=== PATIENT | male | born 1990 | race Hispanic/Latino ===

== ENCOUNTER 2024-06-09 03:00 | Observation (INO) | payer SELFPAY ==
--- OUTSIDE RECORDS SUMMARY | 2024-06-09 03:03 | XMS REPORT | Continuity of Care Document ---
Author Name Unknown Address [address] [facility] [address] [place] [address] Organization [facility] MD Address [address] [facility] [address] [place] [address] Care Team Providers Care Senior Education Specialist Name Role Phone Pcp, Patient Does Not Have A Primary Care Physic khadra Sandeep LEDEZMA Attending Clinician Unavailable Sandeep Wyatt Attending Clinician [phone] Ivory Marshall Attending Clinician [phone] IVORY VELARDE Attending Clinician Unavailable Payers Payer Name Policy Type Policy Number Effective Date Expirati on Date Source [facility] [id number] 2021 00:00:00 Problems Condition Name Condition Details Condition Category Status Onset Date Resolution Date Last Treatment Date Treating Clinician Comments Source No known active problems No known active problems Disease [facility] Allergies, Adverse Reactions, Alerts Allergy Name Allergy Type Status Severity Reaction(s) Onset Date Inactive Date Treating Clinician Comments Source NO KNOWN ALLERGIE S Drug Class Active [facility] Social History Social Habit Start Date Stop Date Quantity Comments Source Exposure to SARS-CoV-2 (event) 2021-08-18 00:00:00 2021-08-28 13:17:[address] [facility] Sex Ass[birth year] At 1990 00:00:00 1990 00:00:00 [facility] Smoking Status Start Date Stop Date Source Unknown if ever smoked [facility] Medications Ordered Medication Name Filled Medication Name Start Date Stop Date Current Medication? Ordering Clinician Indication Dosage Frequency Signature (SIG) Comments Components Source ibuprofen 600 mg tablet 08-28 00:00: 00 Yes [id number] 600mg Take 1 tablet by mouth every 6 (six) hours as needed for Pain (scale 4-6). [facility] benzonatate 200 mg capsule 08-28 00:00: 00 Yes [id number] 200mg Take 1 capsule by mouth 3 (three) times daily as needed for Cough for up to 20 doses. [facility] ibuprofen (IBU) tablet 800 mg 06-12 21:15: 00 06-12 20:17 :00 No 800mg 800 mg, Oral, ONCE, 1 dose, On Sarah 06/12/21 at 1615, SANDEEP [facility] oseltamivir (TAMIFLU) 75 mg capsule 06-12 00:00: 00 06-18 04:59 :00 No [id number] 75mg Take 1 capsule by mouth 2 (two) times daily for 5 days. [facility] Vital Signs Vital Name Observation Time Observation Value Comments S ourerin Systolic blood pressure 2021-08-28 16:56:00 182 mm[Hg] [facility] Diastolic blood pressure 2021-08-28 16:56:00 96 mm[Hg] [facility] Heart rate 2021-08-28 16:56:00 75 /min [facility] Body temperature 2021-08-28 16:56:[address] [facility] Respiratory rate 2021-08-28 16:56:00 22 /min [facility] Body weight 2021-08-28 16:56:00 131.543 kg [facility] Oxygen saturation in Arterial blood by Pulse oximetry 2021-08-28 16:56:00 98 /min [facility] Systolic blood pressure 2021-06-12 21:27:00 171 mm[Hg] [facility] Diastolic blood pressure 2021-06-12 21:27:00 93 mm[Hg] [facility] Heart rate 2021-06-12 21:27:00 58 /min [facility] Body temperature 2021-06-12 21:27:[address] [facility] Respiratory rate 2021-06-12 21:27:00 20 /min [facility] Oxygen saturation in Arterial blood by Pulse oximetry 2021-06-12 21:27:00 95 /min [facility] Body weight 2021-06-12 18:55:00 124.739 kg [facility] Procedures Procedure Date / Time Performed Performing Clinicia n Source RAPID STREP SCREEN FOR GROUP A 2021-08-28 18:16:[address] [facility] COVID-19 (ID NOW RAPID TESTING) 2021-08-28 18:16:[address] [facility] CONSENT/REFUSAL FOR DIAGNOSIS AND TREATMENT 2021-08-28 16:33:08 Doctor Unassigned, [place] [facility] RAPID STREP SCREEN FOR GROUP A 2021-06-12 20:15:[address] [facility] RAPID INFLUENZA A/B 2021-06-12 20:15:[address] [facility] COVID-19 (ID NOW RAPID TESTING) 2021-06-12 20:15:[address] [facility] NOTICE OF PRIVACY PRACTICES 2021-06-12 18:25:30 Doctor Unassigned, [place] [facility] CONSENT/REFUSAL FOR DIAGNOSIS AND TREATMENT 2021-06-12 18:25:13 Doctor Unassigned, [place] [facility] Encounters Start Date/Time End Date/Time Encounter Type Admission Type Attending Clinicians Care Facility Care Department Encounter ID Source 2022-08-21 08:23:53 2022-08-21 08:23:53 Outpatient S[facility] SFA [id number] Pola Marrero 2021-08-28 11:57:00 2021-08-28 14:55:00 Emergency X Sandeep LEDEZMA [facility] ERT [id number] [facility] 2021-08-28 11:57:00 2021-08-28 14:55:00 Emergency Sandeep Ledezma [facility] [id number] [facility] 2021-06-12 13:56:00 2021-06-12 16:31:00 Emergency Ivory Velarde [facility] [id number] [facility] 2021-06-12 13:56:00 2021-06-12 16:31:00 Emergency X IVORY VELARDE [facility] ERT [id number] [facility]
[2024-06-09] MEDS ORDERED: NA CHLORIDE 0.9% 500 ML ONE (03:25)
[2024-06-09] MEDS ORDERED: FAMOTIDINE 20 MG/2 ML VIAL IV ONE (03:25)
[2024-06-09] MEDS ORDERED: AMLODIPINE 10 MG TAB ONE (03:25)
[2024-06-09] MEDS ORDERED: ASPIRIN 81 MG CHEWABLE TABLET ONE (03:26)
[2024-06-09 04:04] LABS: Absolute Basophils 0.1 K/uL (0-0.5); Absolute Eosinophils 0.1 K/uL (0-0.5); Absolute Lymphocytes (CBC) 2.3 K/uL (0.7-4.9); Absolute Monocytes 0.9 K/uL (0.1-1.3); Absolute Neutrophil 5.3 K/uL (1.8-8.0); Basophils % 0.6 % (0-1.3); Eosinophils % 1.4 % (0-4.4); Hematocrit 40.3 % (39.6-49.0); Hemoglobin 13.9 g/dL (13.6-17.9); Lymphocytes % 26.8 % (15.3-44.8); MCHC 34.5 g/dL (32.0-36.0); MPV 8.2 fL (7.6-11.3); Monocytes % 10.2 % (3.3-12.3); Platelets 262 thou/uL (152-406); RBC Red Blood Cell Count 4.79 M/uL (4.33-5.43); Red Cell Distribution Width 14.2 % (12.1-15.2)
[2024-06-09 04:14] LABS: Barbiturates NEGATIVE (NEGATIVE); Benzodiazepines NEGATIVE (NEGATIVE); Cocaine NEGATIVE (NEGATIVE); METHAMPHETAM NEGATIVE (NEGATIVE); Methadone NEGATIVE (NEGATIVE); Opiates NEGATIVE (NEGATIVE); Phencyclidine NEGATIVE (NEGATIVE); THC Cannibis POSITIVE (NEGATIVE)
[2024-06-09 04:20] LABS: PT Prothrombin Time 11.1 SECONDS (10-13.0); Protime INR 0.97
[2024-06-09 04:27] LABS: Specific Gravity 1.007 (1.005-1.030); Sqamous Epithelial None Seen /HPF (None Seen); Urine Bacteria None Seen /HPF (<20); Urine Bilirubin NEGATIVE (Negative); Urine Blood Negative (Negative); Urine Clarity Clear (Clear); Urine Color Colorless (Yellow); Urine Culture Reflex Order NOT NEEDED; Urine Glucose NEGATIVE (Negative); Urine Ketones NEGATIVE (Negative); Urine Microscopic Reflex YN ORDER UMIC; Urine Nitrite NEGATIVE (Negative); Urine Protein NEGATIVE (Negative); Urine RBC None Seen /HPF (None Seen); Urine Urobilinogen Normal (Normal); Urine WBC None Seen /HPF (<5); Urine pH 6.5 (5.0-7.0)
[2024-06-09 04:28] LABS: ALT/SGPT 32 U/L (16-61); AST/SGOT 20 U/L (15-37); Albumin 3.6 g/dL (3.4-5.0); Alkaline Phosphatase 101 U/L (45-117); Anion Gap 8.9 mEq/L (5.0-15.0); BUN Blood Urea Nitrogen 9 mg/dL (7-18); Bicarbonate 28 mEq/L (21-32); Bilirubin Total 0.4 mg/dL (0.2-1.0); Globulin 3.6 g/dL (2.3-3.5); Glomerular Filtration Rate 111 ml/min (=/>90); Glucose Level 95 mg/dL (74-106); Lipase 43 U/L (13-75); Magnesium 2.4 mg/dL (1.6-2.4); NT PRO-BNP 183 pg/mL (<125); Potassium 2.9 mEq/L (3.5-5.1); Protein, Total 7.2 g/dL (6.4-8.2); Sodium Level 140 mEq/L (136-145); Troponin High Sensitivity 16.1 pg/mL (<58.9)
[2024-06-09 04:31] LABS: Bilirubin Direct < 0.2 mg/dL (0-0.2); Bilirubin Indirect, Calculated 0.2 mg/dL (0.2-0.8)
[2024-06-09] MEDS ORDERED: MORPHINE 4 MG/ML SYR ONE (04:34)
[2024-06-09] MEDS ORDERED: ONDANSETRON 4 MG/2 ML VIAL ONE (04:34)
--- NOTE | 2024-06-09 04:36 | ER ---
Nurse's Notes [facility] Name: Kenny Esquivel Age: 33 yrs Sex: Male : 1990 Arrival Date: 06/09/2024 Time: 03:00 Bed 5 Private MD: Diagnosis: Chest pain, unspecified;Dyspnea;Essential (primary) hypertension;Tobacco abuse counseling;Tobacco use;Hypokalemia Presentation: 06/09 03:21 Chief complaint: Patient states: chest tightness and SOB for the last 3-4 days, worse vc1 tonight. Coronavirus screen: Vaccine status: Patient reports being unvaccinated. At this time, the client does not indicate any symptoms associated with coronavirus-19. Ebola Screen: Patient negative for fever greater than or equal to 101.5 degrees Fahrenheit, and additional compatible Ebola Virus Disease symptoms Patient denies exposure to infectious person. Patient denies travel to an Ebola-affected area in the 21 days before illness onset. No symptoms or risks identified at this time. Initial Sepsis Screen: Does the patient meet any 2 criteria? No. Patient's initial sepsis screen is negative. Does the patient have a suspected source of infection? No. Patient's initial sepsis screen is negative. Risk Assessment: Do you want to hurt yourself or someone else? Patient reports no desire to harm self or others. Onset of symptoms was June 05, 2024. Care prior to arrival: None. Activity prior to arrival: None. 03:21 Method Of Arrival: Ambulatory vc1 03:21 Acuity: JERRY 3 vc1 Triage Assessment: 03:23 General: Behavior is anxious. General: Appears in no apparent distress. uncomfortable, vc1 obese, well groomed, well developed, well nourished, Behavior is cooperative. Pain: Complains of pain in chest Pain does not radiate. Pain currently is 8 out of 10 on a pain scale. Quality of pain is described as pressure, Pain began 2-3 days ago. Is continuous, Aggravated by increased activity, repositioning, Also complains of shortness of breath. EENT: No deficits noted. No signs and/or symptoms were reported regarding the EENT system. Neuro: Level of Consciousness is awake, alert, obeys commands, Oriented to person, place, time, situation, Appropriate for age. Cardiovascular: Reports chest pain, shortness of breath, Capillary refill < 3 seconds Patient's skin is warm and dry. Rhythm is regular. Respiratory: Airway is patent Trachea midline Respiratory effort is even, unlabored, Respiratory pattern is regular, symmetrical. GI: Abdomen is round Abd is soft and non tender. : No deficits noted. No signs and/or symptoms were reported regarding the genitourinary system. Derm: Skin is intact, is healthy with good turgor, Skin is dry, Skin is normal, Skin temperature is warm. Musculoskeletal: Circulation, motion, and sensation intact. Range of motion: intact in all extremities. Historical: - Allergies: 03:22 No Known Allergies; vc1 - Home Meds: 03:22 None [Active]; vc1 - PMHx: 03:22 Hypertensive disorder; vc1 - PSHx: 03:22 None; vc1 - Immunization history:: Client reports having NOT received the Covid vaccine. Flu vaccine is not up to date. - Infectious Disease History:: Denies. - Family history:: not pertinent. - Social history:: Smoking status: Reported history of juuling and/or vaping. Patient uses alcohol, on a daily basis. admits to "couple of beers" a day. Screenin:25 [facility] ED Fall Risk Assessment (Adult) History of falling in the last 3 months, vc1 including since admission No falls in past 3 months (0 pts) Confusion or Disorientation No (0 pts) Intoxicated or Sedated No (0 pts) Impaired Gait No (0 pts) Mobility Assist Device Used No (0 pt) Altered Elimination No (0 pt) Score/Fall Risk Level 0 - 2 = Low Risk Oriented to surroundings, Maintained a safe environment, Educated pt \\T\\ family on fall prevention, incl call for assistance when getting out of bed, Provided non-skid footwear, Hourly rounding (assess needs \\T\\ fall precautionary measures) done. Abuse screen: Denies threats or abuse. Nutritional screening: No deficits noted. Tuberculosis screening: No symptoms or risk factors identified. Assessment: 03:44 Reassessment: see triage assessment. bm8 04:19 Reassessment: Patient appears in no apparent distress at this time. Patient and/or bm8 family updated on plan of care and expected duration. Pain level reassessed. Patient is alert, oriented x 3, equal unlabored respirations, skin warm/dry/pink. Patient states symptoms have not improved. Pain: Complains of pain in chest Pain currently is 7 out of 10 on a pain scale. Quality of pain is described as pressure. Neuro: No deficits noted. Level of Consciousness is awake, alert, obeys commands, Oriented to person, place, time, situation, Appropriate for age. Respiratory: Airway is patent Respiratory effort is even, unlabored, Respiratory pattern is regular, symmetrical. 06:03 Reassessment: Patient appears in no apparent distress at this time. Patient and/or bm8 family updated on plan of care and expected duration. Pain level reassessed. Patient is alert, oriented x 3, equal unlabored respirations, skin warm/dry/pink. Patient denies pain at this time. Patient states feeling better. Patient states symptoms have improved. Pain: Denies pain. Vital Signs: 03:21 BP 191 / 103; Pulse 73; Resp 18; Temp 99.4; Pulse Ox 96% ; Weight 136.08 kg; Height 6 vc1 ft. 1 in. ; Pain 8/10; 03:44 BP 178 / 97; Pulse 72; Resp 18; Temp 99.4; Pulse Ox 96% ; Pain 6/10; bm8 04:19 BP 164 / 84; Pulse 74; Resp 18; Temp 99.2; Pulse Ox 97% ; Pain 7/10; bm8 06:03 BP 156 / 91; Pulse 70; Resp 18; Temp 99.2; Pulse Ox 98% ; Pain 0/10; bm8 03:21 Body Mass Index 39.58 (136.08 kg, 185.42 cm) vc1 03:21 Pain Scale: Adult vc1 03:44 Pain Scale: Adult bm8 04:19 Pain Scale: Adult bm8 06:03 Pain Scale: Adult bm8 Peg Coma Score: 03:44 Eye Response: spontaneous(4). Motor Response: obeys commands(6). Verbal Response: bm8 oriented(5). Total: 15. 04:19 Eye Response: spontaneous(4). Motor Response: obeys commands(6). Verbal Response: bm8 oriented(5). Total: 15. 06:03 Eye Response: spontaneous(4). Motor Response: obeys commands(6). Verbal Response: bm8 oriented(5). Total: 15. ED Course: 03:02 Patient arrived in ED. jj6 03:04 El Villegas MD is Attending Physician. jane 03:22 Triage completed. vc1 03:23 Curtis Piedra, RN is Primary Nurse. bm8 03:23 Arm band placed on right wrist. vc1 03:26 Patient has correct armband on for positive identification. Bed in low position. Call vc1 light in reach. Provided Education on: ekg, call light. color television console monitor on. Pulse ox on. NIBP on. 03:27 Patient maintains SpO2 saturation greater than 95% on room air. vc1 03:33 XRAY Chest (1 view) In Process Unspecified. EDMS 03:44 No provider procedures requiring assistance completed. Initial lab(s) drawn, by nitish story sent to lab. EKG done, by ED staff, reviewed by El Villegas MD. Inserted saline lock: 18 gauge in right antecubital area, using aseptic technique. Blood collected. Flushed with 10 mL NS. 04:34 Prince Tolentino MD is Hospitalizing Provider. jane 05:04 CT Chest For PE Angio In Process Unspecified. EDMS 06:03 Patient admitted, IV remains in place. bm8 Administered Medications: 03:40 Drug: NS 0.9% IV 500 ml 500 ml IV at 1 bolus once; to be given as a bolus over 30 bm8 minutes Volume: 500 ml; Route: IV; Rate: 1 bolus; Site: right antecubital; 06:06 Follow up: Response: No adverse reaction; IV Status: Completed infusion bm8 03:40 Drug: Norvasc PO 10 mg PO once Route: PO; bm8 04:38 Follow up: Response: No adverse reaction bm8 03:41 Drug: Aspirin PO Chewable Tablet 324 mg PO once; 81 mg tablets x 4 Route: PO; bm8 06:06 Follow up: Response: No adverse reaction bm8 03:41 Drug: Famotidine IVP 20 mg IVP once; dilute with 10 mL 0.9% NaCl; give over 2 minutes bm8 Route: IVP; Site: right antecubital; 06:06 Follow up: Response: No adverse reaction bm8 04:37 Drug: morphine IVP or IV 4 mg IVP once over 4 mins Route: IVP; Infused Over: 4 mins; bm8 Site: right antecubital; 06:06 Follow up: Response: No adverse reaction bm8 04:37 Drug: Ondansetron IVP 4 mg IVP once; over 2 minutes Route: IVP; Site: right antecubital;bm8 04:52 Follow up: Response: No adverse reaction bm8 04:52 Drug: Potassium PO Effervescent Tablet 50 mEq PO once; dissolve in 4 ounces of water or bm8 juice Route: PO; 05:26 Follow up: Response: No adverse reaction bm8 04:52 Drug: Metoprolol PO 50 mg PO once Route: PO; bm8 05:26 Follow up: Response: No adverse reaction bm8 05:26 Drug: Potassium PO Effervescent Tablet 50 mEq PO once; dissolve in 4 ounces of water or bm8 juice in 1 hour after first Route: PO; 06:06 Follow up: Response: No adverse reaction bm8 06:03 Drug: Enoxaparin Sub-Q 100 mg Sub-Q once Route: Sub-Q; Site: abdomen; bm8 06:06 Follow up: Response: No adverse reaction bm8 Medication: 03:26 VIS not applicable for this client. vc1 Outcome: 04:35 Decision to Hospitalize by Provider. jane 06:03 Admitted to ER Hold. Please see [facility] for further documentation. bm8 06:03 Condition: stable 06:03 Instructed on the need for admit, Demonstrated understanding of follow-up care, medications, 16:00 Patient left the ED. jb4 Signatures: Dispatcher [employer] El Mark MD MD cha Bryson, James RN RN jb4 Antonia Hayesj6 Luz Cabello RN RN vc1 Curtis Piedra RN RN bm8
--- NOTE | 2024-06-09 04:36 | EDPHYS ---
Physician Documentation [facility] Name: Kenny Esquivel Age: 33 yrs Sex: Male : 1990 Arrival Date: 06/09/2024 Time: 03:00 Bed 5 Private MD: ED Physician El Villegas HPI: 06/09 03:14 This 33 yrs old Male presents to ER via Unassigned with complaints of Chest jane Pressure, Chest Tightness, Shortness Of Breath. 03:14 The patient or guardian reports chest pain that is located primarily in the substernal jane area, anterior chest wall, bilaterally. The pain does not radiate. Associated signs and symptoms: Pertinent positives: shortness of breath. The chest pain is described as aching, sharp. Duration: The patient or guardian reports multiple episodes, with no pattern. Modifying factors: The symptoms are alleviated by nothing. the symptoms are aggravated by nothing. Severity of pain: At its worst the pain was moderate in the emergency department the pain is unchanged. The patient has not experienced similar symptoms in the past. Historical: - Allergies: 03:22 No Known Allergies; vc1 - Home Meds: 03:22 None [Active]; vc1 - PMHx: 03:22 Hypertensive disorder; vc1 - PSHx: 03:22 None; vc1 - Immunization history:: Client reports having NOT received the Covid vaccine. Flu vaccine is not up to date. - Infectious Disease History:: Denies. - Family history:: not pertinent. - Social history:: Smoking status: Reported history of juuling and/or vaping. Patient uses alcohol, on a daily basis. admits to "couple of beers" a day. ROS: 03:14 Constitutional: Negative for fever, chills, and weight loss, Eyes: Negative for injury, jane pain, redness, and discharge, ENT: Negative for injury, pain, and discharge, Neck: Negative for injury, pain, and swelling, Respiratory: Negative for shortness of breath, cough, wheezing, and pleuritic chest pain, Abdomen/GI: Negative for abdominal pain, nausea, vomiting, diarrhea, and constipation, Back: Negative for injury and pain, : Negative for injury, bleeding, discharge, and swelling, MS/Extremity: Negative for injury and deformity, Skin: Negative for injury, rash, and discoloration, Neuro: Negative for headache, weakness, numbness, tingling, and seizure, Psych: Negative for depression, anxiety, suicide ideation, homicidal ideation, and hallucinations, Allergy/Immunology: Negative for hives, rash, and allergies, Endocrine: Negative for neck swelling, polydipsia, polyuria, polyphagia, and marked weight changes, Hematologic/Lymphatic: Negative for swollen nodes, abnormal bleeding, and unusual bruising, 03:14 Cardiovascular: Positive for chest pain, of the chest, 03:14 MS/extremity: Negative for acute changes, Exam: 03:14 Constitutional: This is a well developed, well nourished patient who is awake, alert, jane and in no acute distress. Head/Face: Normocephalic, atraumatic. Eyes: Pupils equal round and reactive to light, extra-ocular motions intact. Lids and lashes normal. Conjunctiva and sclera are non-icteric and not injected. Cornea within normal limits. Periorbital areas with no swelling, redness, or edema. ENT: Nares patent. No nasal discharge, no septal abnormalities noted. Tympanic membranes are normal and external auditory canals are clear. Oropharynx with no redness, swelling, or masses, exudates, or evidence of obstruction, uvula midline. Mucous membranes moist. Neck: Trachea midline, no thyromegaly or masses palpated, and no cervical lymphadenopathy. Supple, full range of motion without nuchal rigidity, or vertebral point tenderness. No Meningismus. Chest/axilla: Normal chest wall appearance and motion. Nontender with no deformity. No lesions are appreciated. Cardiovascular: Regular rate and rhythm with a normal S1 and S2. No gallops, murmurs, or rubs. Normal PMI, no JVD. No pulse deficits. Respiratory: Lungs have equal breath sounds bilaterally, clear to auscultation and percussion. No rales, rhonchi or wheezes noted. No increased work of breathing, no retractions or nasal flaring. Abdomen/GI: Soft, non-tender, with normal bowel sounds. No distension or tympany. No guarding or rebound. No evidence of tenderness throughout. Back: No spinal tenderness. No costovertebral tenderness. Full range of motion. Skin: Warm, dry with normal turgor. Normal color with no rashes, no lesions, and no evidence of cellulitis. MS/ Extremity: Pulses equal, no cyanosis. Neurovascular intact. Full, normal range of motion., bilateral aka Neuro: Awake and alert, GCS 15, oriented to person, place, time, and situation. Cranial nerves II-XII grossly intact. Motor strength 5/5 in all extremities. Sensory grossly intact. Cerebellar exam normal. Normal gait. Psych: Awake, alert, with orientation to person, place and time. Behavior, mood, and affect are within normal limits. 03:14 ECG was reviewed by the Attending Physician. 03:14 Musculoskeletal/extremity: DVT Exam: No signs of deep vein thrombosis. no pain, no swelling, no tenderness, negative Homans' sign noted on exam, no appreciated bluish discoloration, no erythema, no increased warmth, 03:21 ECG was reviewed by the Attending Physician. [facility] Vital Signs: 03:21 BP 191 / 103; Pulse 73; Resp 18; Temp 99.4; Pulse Ox 96% ; Weight 136.08 kg; Height 6 vc1 ft. 1 in. ; Pain 8/10; 03:44 BP 178 / 97; Pulse 72; Resp 18; Temp 99.4; Pulse Ox 96% ; Pain 6/10; bm8 04:19 BP 164 / 84; Pulse 74; Resp 18; Temp 99.2; Pulse Ox 97% ; Pain 7/10; bm8 06:03 BP 156 / 91; Pulse 70; Resp 18; Temp 99.2; Pulse Ox 98% ; Pain 0/10; bm8 03:21 Body Mass Index 39.58 (136.08 kg, 185.42 cm) vc1 03:21 Pain Scale: Adult vc1 03:44 Pain Scale: Adult bm8 04:19 Pain Scale: Adult bm8 06:03 Pain Scale: Adult bm8 [place] Coma Score: 03:44 Eye Response: spontaneous(4). Motor Response: obeys commands(6). Verbal Response: bm8 oriented(5). Total: 15. 04:19 Eye Response: spontaneous(4). Motor Response: obeys commands(6). Verbal Response: bm8 oriented(5). Total: 15. 06:03 Eye Response: spontaneous(4). Motor Response: obeys commands(6). Verbal Response: bm8 oriented(5). Total: 15. MDM: 03:04 Medical Screening Exam initiated jane 03:18 Differential diagnosis: abnormal EKG, acute myocardial infarction, acute pericarditis, jane anxiety, coronary artery disease chest wall pain, Cholelithiasis costochondritis, esophagitis, gastritis, hiatal hernia, pancreatitis, peptic ulcer disease, pericarditis, pneumonia, pulmonary embolus, stable angina, thoracic aortic disection, unstable angina. HEART Score: History: Slightly Suspicious (0), ECG: Non specific repolarization disturbance / LBTB / PM (1), Age: < or = 45 years (0), Risk Factors: > or = 3 Risk factors for atherosclerotic disease (2), [Active Smoker] [+ Family HX] [Obesity] Troponin: < or = 1 x Normal Limit (0), Total Score = 3. MARTIN Risk Score: 1 - Three or more CAD risk factors, 1 - Recent [<24hrs] Severe Angina, TOTAL SCORE = 2. Data reviewed: vital signs, nurses notes, lab test result(s), EKG, radiologic studies. Consideration of Admission/Observation Escalation of care including admission/observation considered. I considered the following discharge prescriptions or medication management in the emergency department Medications were administered in the Emergency Department. See MAR. Independent interpretation of the following test(s) in the Emergency Department EKG: See my EKG interpretation above. Historians other than the Patient: Spouse/Significant Other: well informed. 06/09 03:05 Order name: XRAY Chest (1 view) 06/09 03:05 Order name: Basic Metabolic Panel; Complete Time: 04:32 [facility] 06/09 03:05 Order name: CBC with Diff; Complete Time: 04:18 jane 06/09 03:05 Order name: LFT's; Complete Time: 04:32 [facility] 06/09 03:05 Order name: Magnesium; Complete Time: 04:32 [facility] 06/09 03:05 Order name: NT PRO-BNP; Complete Time: 04:32 [facility] 06/09 03:05 Order name: PT-INR; Complete Time: 04:28 jane 06/09 03:05 Order name: Troponin HS; Complete Time: 04:32 [facility] 06/09 03:05 Order name: Lipase; Complete Time: 04:32 [facility] 06/09 03:05 Order name: Urinalysis w/ reflexes; Complete Time: 04:28 [facility] 06/09 03:05 Order name: UDS; Complete Time: 04:18 [facility] 06/09 04:32 Order name: COVID-19 Ag + Flu A+B Ag; Complete Time: 05:38 [facility] 06/09 05:18 Order name: Lipid Profile [facility] 06/09 05:18 Order name: Lipid Profile; Complete Time: 07:15 [facility] 06/09 05:18 Order name: Troponin High Sensitivity [facility] 06/09 05:18 Order name: Troponin High Sensitivity [facility] 06/09 05:18 Order name: Troponin High Sensitivity [facility] 06/09 05:18 Order name: Troponin High Sensitivity [facility] 06/09 05:18 Order name: Troponin High Sensitivity; Complete Time: 07:15 [facility] 06/09 05:19 Order name: Hemoglobin A1c; Complete Time: 07:15 [facility] 06/09 03:12 Order name: CT Chest For PE Angio; Complete Time: 07:15 [facility] 06/09 05:18 Order name: Echo with Doppler [facility] 06/09 04:32 Order name: EKG; Complete Time: 04:32 [facility] 06/09 03:05 Order name: Cardiac monitoring; Complete Time: 03:38 [facility] 06/09 03:05 Order name: EKG - Nurse/Tech; Complete Time: 03:38 [facility] 06/09 03:05 Order name: IV Saline Lock; Complete Time: 03:38 [facility] 06/09 03:05 Order name: Labs collected and sent; Complete Time: 03:38 [facility] 06/09 03:05 Order name: O2 Per Protocol; Complete Time: 03:38 [facility] 06/09 03:05 Order name: O2 Sat Monitoring; Complete Time: 03:38 [facility] 06/09 04:32 Order name: EKG - Nurse/Tech; Complete Time: 04:52 [facility] EC:21 Rate is 88 beats/min. Rhythm is regular. QRS [place] is Normal. ME interval is normal. QRS jane interval is normal. QT interval is normal. No Q waves. T waves are Normal. No ST changes noted. Clinical impression: NSR w/ Non-specific ST/T Changes and No evidence of ischemia. Interpreted by me. Reviewed by me. Administered Medications: 03:40 Drug: NS 0.9% IV 500 ml 500 ml IV at 1 bolus once; to be given as a bolus over 30 bm8 minutes Volume: 500 ml; Route: IV; Rate: 1 bolus; Site: right antecubital; 06:06 Follow up: Response: No adverse reaction; IV Status: Completed infusion bm8 03:40 Drug: Norvasc PO 10 mg PO once Route: PO; bm8 04:38 Follow up: Response: No adverse reaction bm8 03:41 Drug: Aspirin PO Chewable Tablet 324 mg PO once; 81 mg tablets x 4 Route: PO; bm8 06:06 Follow up: Response: No adverse reaction bm8 03:41 Drug: Famotidine IVP 20 mg IVP once; dilute with 10 mL 0.9% NaCl; give over 2 minutes bm8 Route: IVP; Site: right antecubital; 06:06 Follow up: Response: No adverse reaction bm8 04:37 Drug: morphine IVP or IV 4 mg IVP once over 4 mins Route: IVP; Infused Over: 4 mins; bm8 Site: right antecubital; 06:06 Follow up: Response: No adverse reaction bm8 04:37 Drug: Ondansetron IVP 4 mg IVP once; over 2 minutes Route: IVP; Site: right antecubital;bm8 04:52 Follow up: Response: No adverse reaction bm8 04:52 Drug: Potassium PO Effervescent Tablet 50 mEq PO once; dissolve in 4 ounces of water or bm8 juice Route: PO; 05:26 Follow up: Response: No adverse reaction bm8 04:52 Drug: Metoprolol PO 50 mg PO once Route: PO; bm8 05:26 Follow up: Response: No adverse reaction bm8 05:26 Drug: Potassium PO Effervescent Tablet 50 mEq PO once; dissolve in 4 ounces of water or bm8 juice in 1 hour after first Route: PO; 06:06 Follow up: Response: No adverse reaction bm8 06:03 Drug: Enoxaparin Sub-Q 100 mg Sub-Q once Route: Sub-Q; Site: abdomen; bm8 06:06 Follow up: Response: No adverse reaction bm8 Disposition Summary: 06/09/24 04:35 Hospitalization Ordered Notes: Hospitalization Status: Observation jane Provider: Prince jane Tolentino Condition: Fair jane Problem: new jane Symptoms: have improved jane Bed/Room Type: Standard jane Location: Telemetry/MedSurg (observation)(06/09/24 14:09) jb4 Room Assignment: 215(06/09/24 14:09) jb4 Diagnosis - Chest pain, unspecified jane - Dyspnea jane - Essential (primary) hypertension jane - Tobacco abuse counseling jane - Tobacco use jane - Hypokalemia jane Forms: - Medication Reconciliation Form jane - SBAR form jane - Leadership Thank You Letter jane Signatures: Dispatcher [employer] EDEl Doll MD MD cha Bryson, James, RN RN jb4 Luz Cabello RN RN vc1 Curtis Piedra, RN RN bm8 Corrections: (The following items were deleted from the chart) 03:06 03:06 BASIC METABOLIC PANEL+C.LAB.BRZ ordered. EDMS EDMS 03:06 03:06 CBC+H.LAB.BRZ ordered. EDMS EDMS 03:06 03:06 HEPATIC FUNCTION+C.LAB.BRZ ordered. EDMS EDMS 03:06 03:06 MAGNESIUM+C.LAB.BRZ ordered. EDMS EDMS 03:06 03:06 PROBNP+C.LAB.BRZ ordered. EDMS EDMS 03:06 03:06 PROTIME (+INR)+COAG.LAB.BRZ ordered. EDMS EDMS 03:06 03:06 Troponin High Sensitivity+C.LAB.BRZ ordered. EDMS EDMS 03:06 03:06 LIPASE+C.LAB.BRZ ordered. EDMS EDMS 03:06 03:06 Urinalysis+U.LAB.BRZ ordered. EDMS EDMS 03:06 03:06 URINE DRUG SCREEN+UC.LAB.BRZ ordered. EDMS EDMS 03:06 03:06 Chest Single View+RAD.RAD.BRZ ordered. EDMS EDMS 04:44 04:35 Telemetry/MedSurg (Inpatient) jane vc1 04:44 04:35 jane vc1 14:09 04:44 [facility] ER HOLD vc1 jb4 14:09 04:44 ERHOLD- vc1 jb4
[2024-06-09] MEDS ORDERED: POTASSIUM 25 MEQ EFFERV TAB ONE (04:44)
[2024-06-09] MEDS ORDERED: METOPROLOL XL 50 MG TAB PO ONE (04:44)
[2024-06-09] MEDS ORDERED: NITROGLYCERIN 0.4 MG/TAB SL PRN (05:14)
[2024-06-09 05:18] LABS: Influenza A Ag Negative; Influenza B Ag Negative; SARS-CoV-2 Antigen Rapid Res Negative (Negative)
--- NOTE | 2024-06-09 05:23 | P.HP ---
Certification for Inpatient Patient admitted to: Observation With expected LOS: <2 Midnights Practitioner: I am a practitioner with admitting privileges, knowledge of patient current condition, hospital course, and medical plan of care. Services: Services provided to patient in accordance with Admission requirements found in Title 42 Section 412.3 of the Code of Federal Regulations Patient History Date of Service: 06/09/24 Reason for admission: Chest pain History of Present Illness: Patient is a 33-year-old male with a past medical history of hypertension, obesity and vaping. Presented to the hospital complaining of chest pain that has been ongoing for the past 4 days. Symptoms have been progressively worsening. He woke up in the middle the night with chest pain and shortness of breath. He denies lower extremity edema. His EKG has no signs of ischemic changes. CT angio chest was ordered by ER, results still pending. Workup in the ER is significant for hypokalemia with a potassium of 2.9. Patient's BNP is 185. Urine toxicology is positive for cannabis. Physical Examination - Physical Exam General: Acute distress, Obese HEENT: Atraumatic, Normocephalic Respiratory: Clear to auscultation bilaterally, Normal air movement Cardiovascular: No edema, Normal pulses, Regular rate/rhythm, Normal S1 S2 Neurological: Normal speech - Studies Laboratory Data (last 24 hrs) 06/09/24 06/09/24 06/09/24 02:34 02:34 02:34 WBC 8.80 Hgb 13.9 Hct 40.3 Plt Count 262 PT 11.1 INR 0.97 Sodium 140 Potassium 2.9 L BUN 9 Creatinine 0.92 Glucose 95 Magnesium 2.4 Total Bilirubin 0.4 AST 20 ALT 32 Alkaline Phosphatase 101 Lipase 43 Assessment and Plan - Problems (Diagnosis) (1) Chest pain Current Visit: Yes Status: Acute (2) Obesity Current Visit: Yes Status: Acute (3) Hypertension Current Visit: Yes Status: Acute - Plan Assessment Patient is a 33-year-old with a past medical history of obesity, hypertension and vaping. He is being admitted for ACS after he presented with chest pain. His first troponin was negative, first EKG without ischemic. Chest pain Hypokalemia Vaping Obesity Hypertension Plan: Will admit under observation with telemetry Potassium has been replaced by ER. Follow repeat lab Trend troponin Will obtain a 2D echo, lipid panel and hemoglobin A1c Follow CTA chest ordered by ER As needed nitroglycerin for chest pain Will go ahead and consult cardiology as well due to his risk factors - Advance Directives Does patient have a Living Will: No Does patient have a Durable POA for Healthcare: No
--- NOTE | 2024-06-09 05:54 | RAD REPORT ---
CLINICAL HISTORY: Chest pain. COMPARISON: None. TECHNIQUE: XR CHEST 1 VIEW 06/09/2024 3:05 AM CDT FINDINGS: Cardiac silhouette is normal in size. Lungs are clear without consolidation, atelectasis, mass or daniel ma. There is no pleural effusion. There is no pneumothorax. There are no acute osseous findings. IMPRESSION: Clear lungs. Electronically signed by: Kalyan Wheeler MD 06/09/2024 04:41 AM CDT RP Due to temporary technical issues with the PACS/[employer] reporting system, reports are being amrita d by the in-house radiologist without review as a courtesy to ensure prompt reporting the interpreting radiologist is fully responsible for the content of the report. Transcribed Date/Time: 06/09/2024 5:54 AM
[2024-06-09] MEDS ORDERED: ENOXAPARIN 100 MG/ML SYR SQ ONE (06:01)
--- NOTE | 2024-06-09 06:04 | RAD REPORT ---
CLINICAL HISTORY: Chest pain, dyspnea. COMPARISON: XR Chest 06/09/2024. TECHNIQUE: CT CHEST ANGIOGRAPHY WITH IV CONTRAST on 06/09/2024 3:12 AM CDT. MIPS reconstructions were generated. This exam was performed according to our departmental dose-optimization program, which includes autom ated exposure control, adjustment of the mA and/or kV according to patient size and/or use of iterative reconstruction technique. MIP images were generated. FINDINGS: Thoracic aorta is normal in course and caliber without aneurysm or dissection. Pulmonary arteries are adequately opacified without acute or chronic filling defects. The heart is normal in size. There is no pericardial effusion. Intrathoracic lymph nodes are not enla rged. There is no pleural effusion, pleural thickening or pneumothorax. Central airways are patent. Lungs a re clear with no consolidation, mass or interstitial lung disease. There are no acute abnormalities within the limited images of the upper abdomen. There are no acute osseous findings. No suspicious bony lesions. IMPRESSION: No aortic dissection or aneurysm. No pulmonary embolus. No pneumonia. Electronically signed by: Kalyan Wheeler MD 06/09/2024 05:59 AM CDT RP Due to temporary technical issues with the PACS/[employer] reporting system, reports are being amrita d by the in-house radiologist without review as a courtesy to ensure prompt reporting the interpreting radiologist is fully responsible for the content of the report. Transcribed Date/Time: 06/09/2024 6:03 AM
[2024-06-09 06:16] VITALS: BMI 39.5
[2024-06-09 06:44] LABS: Troponin High Sensitivity 16.9 pg/mL (<58.9)
[2024-06-09] MEDS: ASPIRIN EC 81 MG TAB PO SCH (11:45)
[2024-06-09] MEDS ORDERED: ASPIRIN EC 81 MG TAB PO ONE (12:14)
--- NOTE | 2024-06-09 13:13 | ECHO ---
HEIGHT: 6 ft 1 in WEIGHT: 299 lb 13.259 oz DATE OF STUDY: 06/09/[address]: Prince Joe Tolentino MD 2-DIMENSIONAL: YES M.MODE: YES DOPPLER: YES COLOR FLOW: YES TDS: YES PORTABLE: YES DEFINITY: BUBBLE STUDY: DIAGNOSIS: CHEST PAIN CARDIAC HISTORY: CATHERIZATION: NO SURGERY: NO PROSTHETIC VALVE: NO PACEMAKER: NO MEASUREMENTS (cm) DIASTOLIC (NORMALS) SYSTOLIC (NORMALS) IVSd 1.2 (0.6-1.2) LA Diam 2.2 (1.9-4.0) LVEF 64% LVIDd 4.6 (3.5-5.7) LVIDs 3.0 (2.0-3.5) %FS 35% LVPWd 1.2 (0.6-1.2) Ao Diam 2.8 (2.0-3.7) 2 DIMENSIONAL ASSESSMENT: RIGHT ATRIUM: NORMAL LEFT ATRIUM: NORMAL RIGHT VENTRICLE: NORMAL LEFT VENTRICLE: NORMAL TRICUSPID VALVE: TRACE TRICUSPID REGURGITATION MITRAL VALVE: NORMAL PULMONIC VALVE: NORMAL AORTIC VALVE: NORMAL PERICARDIAL EFFUSION: NONE AORTIC ROOT: NORMAL LEFT VENTRICULAR WALL MOTION: NORMAL DOPPLER/COLOR FLOW: SEE BELOW COMMENTS: 1. NORMAL LEFT VENTRICULAR EJECTION FRACTION 60-65% 2. NORMAL WALL MOTION 3. NORMAL DIASTOLIC DYSFUNCTION 4. MILD CONCENTRIC LEFT VENTRICULAR HYPERTROPHY TECHNOLOGIST: MARIO MORALES
--- NOTE | 2024-06-09 16:06 | P.PN ---
Date of Service: 06/09/24 Patient seen on rounds early afternoon Reports continuing some chest discomfort/pressure/heaviness, worsens with exertion Troponins normal/stable Echo normal, with some mild concentric LVH Blood pressure improved, elevation likely secondary to coming in discomfort/anxious state regarding chest pain, will continue monitor Received potassium for his significant hypokalemia Repeat BMP this afternoon/evening Monitor overnight on telemetry, repeat labs in a.m.
--- NOTE | 2024-06-09 19:11 | CON ---
Date of Consultation: 06/09/2024 Reason For Consultation: Chest pain. History Of Present Illness: A 33-year-old male with history of hypertension, obesity, presented to e mergemty room with chest pain. He said it is like sharp and needles like and sometimes feels like pr essure with shortness of breath and his main issue is shortness of breath. Denies having any other c omplaints. Echo is totally normal including diastolic function. Past Medical History: As outlined above in the HPI. Medications: Refer reconciliation sheet for detailed list. Allergies: NO KNOWN DRUG ALLERGIES. Family History: No premature coronary artery disease or cancer. Review of Systems: All systems reviewed and they were negative except as mentioned in the HPI. Physical Examination: Vital Signs: Reviewed. Head and Neck: Pupils are equal, reactive to light. Intact eye movements. No JVD, no cervical lymp hadenopathy. Neck is supple. Thyroid is not enlarged. Lungs: Clear to auscultation bilaterally. No rhonchi, wheezing, or crackles. No accessory muscle u se. Heart: Regular rate and rhythm. No extra sounds. Abdomen: Soft, nontender. Bowel sounds are positive. No organomegaly. No masses or hernia. No ri gidity or rebound. Extremities: No edema, clubbing, or cyanosis. Intact pulses. Skin: No rash. No nodules. Neurologic: Alert, awake, and oriented x3. No acute focal deficits appreciated. Investigation: Labs were reviewed. Troponins x4 are negative. BUN is 9, creatinine 0.92. Hemoglob in is 13.9. Assessment/recommendations: 1. Chest pain. His echo is normal including diastolic function. Cardiac enzymes are normal. From m y perspective, he can be released to follow up and as an outpatient for a treadmill exercise stress t est and CTA of the lungs did not show any dissection. 2. Hypertension. Blood pressure is borderline. Recommend to start him on beta-radha and continue baby aspirin and from Cardiology standpoint patient can be released to follow up with me in the [facility] e early next week to arrange for stress test. SR/MODL Voice ID: [id number] Report ID: [id number]
[2024-06-09] MEDS: FAMOTIDINE 20 MG TAB PO SCH (21:10)
[2024-06-09] MEDS: CODEINE 30MG/APAP 300MG TAB PO PRN (21:15)
[2024-06-09 22:32] LABS: Anion Gap 5.9 mEq/L (5.0-15.0)
[2024-06-09 22:35] LABS: Magnesium 2.2 mg/dL (1.6-2.4); Potassium 3.9 mEq/L (3.5-5.1)
[2024-06-10 06:02] LABS: Anion Gap 6.5 mEq/L (5.0-15.0); Magnesium 2.2 mg/dL (1.6-2.4); Potassium 3.5 mEq/L (3.5-5.1)
[2024-06-10 08:51] VITALS: O2SAT 96
[2024-06-10] MEDS: METOPROLOL XL 25 MG TAB PO SCH (09:00)
[2024-06-10 12:25] VITALS: BP 168/72; TEMP 97.6
[2024-06-10 12:35] LABS: Anion Gap 5.8 mEq/L (5.0-15.0); Magnesium 2.4 mg/dL (1.6-2.4); Potassium 3.8 mEq/L (3.5-5.1)
--- NOTE | 2024-06-11 06:39 | P.DS ---
Admission Date: 06/09/24 Discharge Date: 06/10/24 Disposition: ROUTINE DISCHARGE Discharge Condition: GOOD Reason for Admission: Chest pain Consultations: Cardiology - Dr. Car Brief History of Present Illness: 33yo M, PMH: hypertension, obesity and vaping. Pamela presented to the hospital complaining of chest pain that has been ongoing for the past 4 days. Symptoms have been progressively worsening. He woke up in the middle the night with chest pain and shortness of breath. He denies lower extremity edema. His EKG has no signs of ischemic changes. CT angio chest was ordered by ER, results still pending. Workup in the ER is significant for hypokalemia with a potassium of 2.9. Patient's BNP is 185. Urine toxicology is positive for cannabis. Hospital Course: Problem List: Chest discomfort, improved Hypokalemia, resolved Hypertension Physician discharge instructions: Patient presented with chest pain for ~4 days. Cardiac work up this hospitalization was negative. Troponin's were negative x3. EKG was without ischemic changes. His potassium was noted to be 2.9 in the ER, otherwise rest of workup was within normal limits. Flu/Covid screening negative. Chest xray was negative. CTA chest without any acute findings. No evidence of PE, Pneumonia, aortic dissection or aneurysm. Cardiology was consulted and recommended no further inpatient workup, and to have an outpatient stress test for further evaluation. Echo was completed on 06/09 - preliminary report was normal, with some mild concentric left ventricular hypertrophy, which would be consistent with hypertension. Follow up with Cardiology in the next 1-2 weeks for outpatient stress test. Blood pressure was noted to be elevated throughout hospitalization. Patient not on any antihypertensives currently but does report being told he had hypertension in the past (~2.5 years ago) and took medications for a few weeks before he stopped. Recommend checking blood pressure around the same time each day. Keep daily log of blood pressure readings to take to follow up appointments. Blood pressure improved with amlodipine and metoprolol, and will be prescribed on discharge. He was noted to be hypokalemic on admission with potassium of 2.9. Unclear exact etiology. No medications, no vomiting/diarrhea. He did report he is a daily alcohol drinker, ranging from a few drinks to several / day, which may impact his potassium levels. Potassium was replaced in the ED, normalized quickly, and remained stable for rest of hospitalization. Potassium on discharge: 3.8 Given history of vaping and alochol use, a possibility of his chest discomfort could be irritation from vaping, possibly gastritis / GERD -however not having classic symptoms. Advised moderation and cessation of nicotine and alcohol, and trial of pepcid daily for a month, while undergoing further workup. A1c this hospitalization: 5.4 - within normal range. Medications: Metoprolol 25 mg daily Amlodipine 10mg daily Pepcid 20mg daily Aspirin 81mg daily Follow up: PCP 3-5 days Cardiology in 1-2 weeks Please call to schedule / confirm appointments Physical Exam: GEN: Alert, oriented, NAD CV: Regular rate and rhythm, no edema Pulm: Nonlabored respirations on room air, clear bilaterally ABD: soft, nontender, nondistended Integumentary: No rashes Neuro: Normal speech, normal affect Vital Signs/Physical Exam: Temp Pulse Resp BP Pulse Ox 97.6 F 62 14 168/72 H 95 06/10/24 12:00 06/10/24 12:00 06/10/24 12:00 06/10/24 12:00 06/10/24 12:00 Laboratory Data at Discharge: WBC 8.80 thou/uL (4.3-10.9) 06/09/24 02:34 Hgb 13.9 g/dL (13.6-17.9) 06/09/24 02:34 Hct 40.3 % (39.6-49.0) 06/09/24 02:34 Plt Count 262 thou/uL (152-406) 06/09/24 02:34 PT 11.1 SECONDS (10-13.0) 06/09/24 02:34 INR 0.97 06/09/24 02:34 Sodium 140 mEq/L (136-145) 06/10/24 12:10 Potassium 3.8 mEq/L (3.5-5.1) 06/10/24 12:10 BUN 9 mg/dL (7-18) 06/10/24 12:10 Creatinine 0.85 mg/dL (0.70-1.30) 06/10/24 12:10 Glucose 103 mg/dL (74-106) 06/10/24 12:10 Magnesium 2.4 mg/dL (1.6-2.4) 06/10/24 12:10 Total Bilirubin 0.4 mg/dL (0.2-1.0) 06/09/24 02:34 AST 20 U/L (15-37) 06/09/24 02:34 ALT 32 U/L (16-61) 06/09/24 02:34 Alkaline Phosphatase 101 U/L (45-117) 06/09/24 02:34 Triglycerides 142 mg/dL (<150) 06/09/24 05:58 Cholesterol 146 mg/dL (<200) 06/09/24 05:58 HDL Cholesterol 40 mg/dL (40-60) 06/09/24 05:58 Cholesterol/HDL Ratio 3.65 06/09/24 05:58 Lipase 43 U/L (13-75) 06/09/24 02:34 Home Medications: Amlodipine [Norvasc*] 10 mg PO DAILY 30 Days #30 tab 06/10/24 Aspirin [Aspirin EC 81 MG] 81 mg PO 30 MIN BEFORE HS 30 Days #30 tab 06/10/24 Famotidine [Pepcid] 20 mg PO DAILY 30 Days #30 tab 06/10/24 Metoprolol Succinate [Toprol Xl] 25 mg PO DAILY 30 Days #30 tab 06/10/24 New Medications: Aspirin [Aspirin EC 81 MG] 81 mg PO 30 MIN BEFORE HS 30 Days #30 tab Amlodipine [Norvasc*] 10 mg PO DAILY 30 Days #30 tab Famotidine [Pepcid] 20 mg PO DAILY 30 Days #30 tab Metoprolol Succinate [Toprol Xl] 25 mg PO DAILY 30 Days #30 tab Physician Discharge Instructions: Physician discharge instructions: Patient presented with chest pain for ~4 days. Cardiac work up this hospitalization was negative. Troponin's were negative x3. EKG was without ischemic changes. His potassium was noted to be 2.9 in the ER, otherwise rest of workup was within normal limits. Flu/Covid screening negative. Chest xray was negative. CTA chest without any acute findings. No evidence of PE, Pneumonia, aortic dissection or aneurysm. Cardiology was consulted and recommended no further inpatient workup, and to have an outpatient stress test for further evaluation. Echo was completed on 06/09 - preliminary report was normal, with some mild concentric left ventricular hypertrophy, which would be consistent with hypertension. Follow up with Cardiology in the next 1-2 weeks for outpatient stress test. Blood pressure was noted to be elevated throughout hospitalization. Patient not on any antihypertensives currently but does report being told he had hypertension in the past (~2.5 years ago) and took medications for a few weeks before he stopped. Recommend checking blood pressure around the same time each day. Keep daily log of blood pressure readings to take to follow up appointments. Blood pressure improved with amlodipine and metoprolol, and will be prescribed on discharge. He was noted to be hypokalemic on admission with potassium of 2.9. Unclear exact etiology. No medications, no vomiting/diarrhea. He did report he is a daily alcohol drinker, ranging from a few drinks to several / day, which may impact his potassium levels. Potassium was replaced in the ED, normalized quickly, and remained stable for rest of hospitalization. Potassium on discharge: 3.8 Given history of vaping and alochol use, a possibility of his chest discomfort could be irritation from vaping, possibly gastritis / GERD -however not having classic symptoms. Advised moderation and cessation of nicotine and alcohol, and trial of pepcid daily for a month, while undergoing further workup. A1c this hospitalization: 5.4 - within normal range. Medications: Metoprolol 25 mg daily Amlodipine 10mg daily Pepcid 20mg daily Aspirin 81mg daily Follow up: PCP 3-5 days Cardiology in 1-2 weeks Please call to schedule / confirm appointments Followup: NONE,NONE [Primary Care Provider] - Time spent managing pt's care (in minutes): 45
--- NOTE | 2024-06-12 11:30 | EKG ---
Test Date: 2024-06-09 Test Time: 03:18:01 Arrt Technologist: [place] MEASUREMENT RESULTS: Intervals: Rate: 88 NV: 154 QRSD: 84 QT: 394 QTc: 476 [place]: P: 63 NV: 154 QRS: 69 T: 94 INTERPRETIVE STATEMENTS: Normal sinus rhythm Nonspecific ST abnormality Abnormal ECG No previous ECG available for comparison Electronically Signed On 06-12-24 11:23:10 CDT by Arya Acosta
--- NOTE | 2024-06-12 11:30 | EKG ---
Test Date: 2024-06-09 Test Time: 03:18:56 Back Tender Cylinder: [place] MEASUREMENT RESULTS: Intervals: Rate: 78 NM: 148 QRSD: 86 QT: 400 QTc: 456 [place]: P: 70 NM: 148 QRS: 66 T: 122 INTERPRETIVE STATEMENTS: Normal sinus rhythm Possible Left atrial enlargement ST & T wave abnormality, consider lateral ischemia Abnormal ECG Compared to ECG 06/09/2024 03:18:01 Possible ischemia now present ST (T wave) deviation still present Electronically Signed On 06-12-24 11:23:09 CDT by Arya Acosta
== END 2024-06-10 16:48 | disposition home or self-care (01) ==
LOC: ER 03:00 → ERHOLD 05:14 → 2ND 15:24
PROVIDERS: ADMIT Internal Medicine; ATTEND Hospitalist
DX: R07.9 Chest pain, unspecified (principal); I10 Essential (primary) hypertension; E66.9 Obesity, unspecified; F17.290 Nicotine dependence, other tobacco product, uncomplicated; R06.02 Shortness of breath; F12.929 Cannabis use, unspecified with intoxication, unspecified; E87.6 Hypokalemia; F17.210 Nicotine dependence, cigarettes, uncomplicated; Z71.6 Tobacco abuse counseling; Z11.52 Encounter for screening for COVID-19
CPT/HCPCS: 36415; 71045; 71275; 80048; 80061; 80076; 80307; 81001; 83036; 83690; 83735; 83880; 84484; 85025; 85610; 87428; 93005; 93306; 96361; 96372; 96374; 96375; 99285; G0378; J1650; J2405; J7040; Q9967